=== PATIENT | male | born 1950 | race Caucasian/White ===

== ENCOUNTER 2019-10-02 06:51 | Outpatient (CLI) | payer MEDICARE ==
[2019-10-02 14:56] LABS: #Eosinphils 0.2 thou/uL (0.0-0.7); #Lymphocytes 2.3 thou/uL (1.20-3.40); #Monocytes 0.5 thou/uL (0.11-0.59); #Neutrophils 3.7 thou/uL (1.40-6.50); %Basophils 0.5 % (0.0-1.0); %Eosinophils 2.6 % (0.0-10.0); %Lymphocytes 34.8 % (21.0-51.0); %Monocytes 6.9 % (0.0-10.0); %Neutrophils 55.2 % (42.0-75.0); Hemoglobin 15.3 g/dL (14.0-18.0); Mean Corpuscular HGB CONC 34.8 g/dL (32.0-36.0); Mean Corpuscular Hemoglobin 34.7 pg (27.0-31.0); Mean Corpuscular Volume 99.7 fL (78.0-98.0); Mean Platelet Volume 8.9 fL (7.4-10.4); Platelet Count 136 thou/uL (130-400); RBC Distribution Width 12.5 % (11.5-14.5); Red Blood Cell (RBC) Count 4.42 mill/uL (4.70-6.10); White Blood Cell (WBC) Count 6.7 thou/uL (4.8-10.8)
[2019-10-02 15:17] LABS: Anion Gap 15 mmol/L (10-20); BUN (Urea Nitrogen) 23 mg/dL (8.4-25.7); Calc. Creatinine Clearance 0 mL/min (70-130); Calcium 9.3 mg/dL (7.8-10.44); Carbon Dioxide 27 mmol/L (23-31); Chloride 99 mmol/L (98-107); Estimated GFR-MDRD 74; Glucose 93 mg/dL (80-115); Potassium 3.6 mmol/L (3.5-5.1); Sodium 137 mmol/L (136-145)
--- NOTE | 2019-10-02 16:35 | EKG ---
Test Reason : Blood Pressure : / mmHG Vent. Rate : 053 BPM Atrial Rate : 053 BPM P-R Int : 206 ms QRS Dur : 110 ms QT Int : 438 ms P-R-T Axes : 048 -08 -13 degrees QTc Int : 410 ms Sinus bradycardia Nonspecific ST-T changes No previous ECGs available Confirmed by DR. Georges ROJAS ([id number]) on 10/02/2019 4:35:14 PM Referred By: TESSA Confirmed By:DR. Georges ROJSA
== END 2019-10-02 06:52 | disposition home or self-care (01) ==
LOC: LABBT 06:51
PROVIDERS: ATTEND Orthopaedic Surgery Hand Surgery
DX: Z01.818 Encounter for other preprocedural examination (principal); R22.32 Localized swelling, mass and lump, left upper limb
CPT/HCPCS: 80048; 85025; 93005; 93010

== ENCOUNTER 2019-10-03 06:30 | Day surgery (SDC) | payer MEDICARE ==
[2019-10-02 14:20] VITALS: BMI 25.1
[2019-10-03] MEDS ORDERED: Midazolam HCl 2 mg/2 ml Vial ONE ×2 (08:23→09:19)
[2019-10-03] MEDS ORDERED: hydrALAZINE 20 MG/ML VIAL ONE (08:25)
[2019-10-03] MEDS ORDERED: Fentanyl 100 MCG/2 ML VIAL ONE (08:47)
[2019-10-03] MEDS ORDERED: Bacitracin Zinc Ointment 30 gm TUBE ONE (08:55)
[2019-10-03] MEDS ORDERED: Betamet Acet/Betamet Na Ph 30 MG/5 ML VIAL ONE (08:55)
[2019-10-03] MEDS ORDERED: Bupivacaine PF 0.5% 30 ML VIAL ONE (08:55)
[2019-10-03] MEDS ORDERED: PROPOFOL 200 MG/20 ML VIAL ONE (10:20)
[2019-10-03] MEDS ORDERED: Ketorolac Tromethamine 30 MG/ML VIAL ONE (11:40)
--- NOTE | 2019-10-03 15:24 | OP ---
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 POSTOPERATIVE DIAGNOSIS: Squamous cell carcinoma, same size above. FINDINGS: Intraoperative sent to Pathology, fresh frozen specimen of all quadrants, free of tumor with a 3 mm margin differentiated squamous cell carcinoma. PROCEDURES PERFORMED: 1. Excision, 3.0 cm malignant lesion (squamous cell carcinoma) from dorsal ulnar right hand. 2. Application of split-thickness skin graft, harvested from the ipsilateral antecubital fossa. COMPLICATIONS: None. ESTIMATED BLOOD LOSS: Less than 10 mL. TOURNIQUET TIME: 15 minutes. ANESTHESIA: IV conscious sedation, augmented by 30 mL total of 0.5% Marcaine without epinephrine. DESCRIPTION OF PROCEDURE: After successful anesthesia listed above, the limb was prepped and draped. Time-out was done appropriately. He then underwent his injection where 20 mL given at the donor site total and 10 at the harvest site for the graft antecubital fossa of the ipsilateral right elbow. We then had confirmation that the patient had excellent pain relief, then measuring a 3 mm margin circumferentially in all 4 quadrants. We elevated the mass. It did not penetrate the fascia and was not deep. It appeared clinically like a squamous cell carcinoma that precancerous lesion. We had marked all the galindo with appropriate colors and documented this. We went to Pathology and released the tourniquet. I held hemostasis until we heard from pathology 22 minutes later. At this point, when we told that the squamous cell carcinoma proven and we had margins free of tumor, we thanked the pathologist, then obtained hemostasis. We closed the wound with 3 individual stitches to each of the 2 quadrants, turning the square to rhomboid and then harvested a 2.5 x 1 cm graft that would easily cover this area full thickness from the antecubital fossa of the same side. We closed the donor site with a running 3-0 Monocryl, and then for the epidermis, we used Dermabond. We then attached each of the four quadrants of the graft with a 4-0 nylon, which was served as a bolster suture, ran a chromic suture, and then placed a bolster with bacitracin against the graft, Adaptic, mineral oil soaked cotton ball, and then we tied the bolster. We then placed 4x4s on both wounds with dry Adaptic between the 4x4 and the dry fibrin glue. A Kerlix was then used and then Behzad wrap to cover from the distal arm/elbow away to the MCP joint. The patient left the operating room without evidence of anesthetic or operative complication. We explained the pathology report to the patient's in the recovery area. Job ID: [id number]
== END 2019-10-03 11:58 | disposition home or self-care (01) ==
LOC: SDC 06:30
PROVIDERS: ATTEND Orthopaedic Surgery Hand Surgery
PROC: 0HRGX74 Replacement of Left Hand Skin with Autologous Tissue Substitute, Partial Thickness, External Approach (ICD-10-PCS; principal; 2019-10-03)
DX: C44.629 Squamous cell carcinoma of skin of left upper limb, including shoulder (principal); M18.11 Unilateral primary osteoarthritis of first carpometacarpal joint, right hand; M19.041 Primary osteoarthritis, right hand; L57.0 Actinic keratosis; I10 Essential (primary) hypertension; E78.00 Pure hypercholesterolemia, unspecified; E78.5 Hyperlipidemia, unspecified; Z87.891 Personal history of nicotine dependence; Z79.82 Long term (current) use of aspirin; Z79.899 Other long term (current) drug therapy; Z91.018 Allergy to other foods
CPT/HCPCS: 88305; 88331; 88332; J0360; J0690; J0702; J1885; J2250; J2704; J3010; J3490; S0020